=== PATIENT | female | born 1990 | race Caucasian/White ===

== ENCOUNTER → 2021-09-21 | Outpatient (CLI) | payer BC, OTHER ==
[2021-09-21 09:11] LABS: ALBUMIN 4.1 GM/DL (3.2-4.5); BILIRUBIN,TOTAL 0.4 MG/DL (0.1-1.0); CALCIUM 9.3 MG/DL (8.5-10.1); CREATININE SERUM 0.83 MG/DL (0.60-1.30); POTASSIUM 4.2 MMOL/L (3.6-5.0)
== END ==
LOC: LAB 08:21
PROVIDERS: ATTEND Midwife
DX: N92.6 Irregular menstruation, unspecified (principal)
CPT/HCPCS: 36415; 80053; 84703

== ENCOUNTER → 2021-11-30 | Outpatient (CLI) | payer BC | LOC: LAB 10:05 | PROVIDERS: ATTEND Internal Medicine Endocrinology, Diabetes & Metabolism | DX: O92.6 Galactorrhea (principal); E22.1 Hyperprolactinemia | CPT/HCPCS: 36415; 84146 ==

== ENCOUNTER → 2022-01-30 | Outpatient (CLI) | payer BC | LOC: LAB 13:20 | PROVIDERS: ATTEND Internal Medicine Endocrinology, Diabetes & Metabolism | DX: E22.1 Hyperprolactinemia (principal) | CPT/HCPCS: 36415; 84146 ==

== ENCOUNTER 2022-05-13 08:52 | Emergency (ER) | payer BC ==
[~2022-05-13] VITALS: Ht 172 cm; Wt 60.0 kg
[2022-05-13 09:24] LABS: BILIRUBIN,URINE NEGATIVE (NEGATIVE); CLARITY,URINE CLEAR; COLOR,URINE YELLOW; GLUCOSE, URINE (UA) NEGATIVE (NEGATIVE); KETONES,URINE NEGATIVE (NEGATIVE); LEUKOCYTE ESTERASE ,URINE NEGATIVE (NEGATIVE); NITRITE,URINE NEGATIVE (NEGATIVE); PROTEIN,URINE NEGATIVE (NEGATIVE)
[2022-05-13 09:31] LABS: BACTERIA,URINE NEGATIVE /HPF; RBC,URINE 50-100 /HPF
[2022-05-13 09:32] LABS: SQUAMOUS EPITHELIAL CELL,UR 0-2 /HPF
--- NOTE | 2022-05-13 09:32 | ED GU-Female ---
General Chief Complaint: OB < 20 WEEKS Stated Complaint: 6 WKS PREG - BLEEDING Nursing Triage Note: PT STATES 6 WKS BLEEDING STARTED THIS MORNING, G-2 P-1, NO ISSUES WITH FIRST . 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 STAATES HYPER PROLACTENEMIA AND TOOK MEDS FOR THAT BUT STOPPED WHEN SHE GOT . DUE DATE 01/08/23, LMP 04/03/22 Source: patient Exam Limitations: no limitations History of Present Illness Date Seen by Provider: May 13, 2022 Time Seen by Provider: 09:20 Initial Comments Patient is a 32-year-old female who presents to the emergency department today with a chief complaint of vaginal spotting that has turned into some vaginal bleeding similar to a light menstrual period. She is a last delivery was in 2018. No complications. She is a runner and went on a 5 mile run yesterday. No other complaints of trauma. No fevers chills, burning with urination. No other complaints of illness or injury. Mild cramping. EGA 5 weeks 5/7d by chio xiao. Estimated due date 01/08/23 All other review of systems reviewed and negative except as stated Timing/Duration: this morning Severity/Quality: mild, cramping (mild) Location: suprapubic Radiation: none Activities at Onset: none Prior Genitourinary Problems: none Associated Symptoms: denies symptoms Allergies and Home Medications Patient Home Medication List Home Medication List Reviewed: Yes Review of Systems Review of Systems Constitutional: see HPI Respiratory: no symptoms reported Cardiovascular: no symptoms reported Gastrointestinal: no symptoms reported Genitourinary: other (vaginal bleeding) : Yes Expected Date of Delivery: Jan 08, 2023 Endocrine: Other (h/o prolactinoma) All Other Systemes Reviewed Negative Unless Noted: Yes Past Mmqtzzw-Hwoazb-Avsgzz Hx Patient Social History Tobacco Use?: No Substance use?: No Alcohol Use?: No Immunizations Up To Date Second COVID19 Vaccination Ryan: YES 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 oz. kg; 20.00 BMI Method: General Appearance: WD/WN, no apparent distress, thin HEENT: PERRL/EOMI Neck: normal inspection Cardiovascular: regular rate, rhythm Respiratory: lungs clear, normal breath sounds, no respiratory distress, no accessory muscle use Gastrointestinal: non tender, soft Extremities: normal range of motion, normal inspection Neurologic/Psychiatric: alert, normal mood/affect, oriented x 3 Skin: normal color, warm/dry Progress/Results/Core Measures Suspected Sepsis SIRS Temperature: Pulse: 60 Respiratory Rate: 18 Laboratory Tests 05/13/22 09:40: White Blood Count 5.4 Blood Pressure 106 /71 Mean: 83 Laboratory Tests 05/13/22 09:40: Platelet Count 215 Results/Orders Lab Results Laboratory Tests Test 05/13/22 09:10 05/13/22 09:40 Range/Units Urine Color YELLOW Urine Clarity CLEAR Urine pH 6.0 5-9 Urine Specific [place] >=1.030 1.016-1.022 Urine Protein NEGATIVE NEGATIVE Urine Glucose (UA) NEGATIVE NEGATIVE Urine Ketones NEGATIVE NEGATIVE Urine Nitrite NEGATIVE NEGATIVE Urine Bilirubin NEGATIVE NEGATIVE Urine Urobilinogen 0.2 < = 1.0 MG/DL Urine Leukocyte Esterase NEGATIVE NEGATIVE Urine RBC (Auto) 3+ H NEGATIVE Urine RBC 50-100 H /HPF Urine WBC NONE /HPF Urine Squamous Epithelial Cells 0-2 /HPF Urine Crystals NONE /LPF Urine Bacteria NEGATIVE /HPF Urine Casts NONE /LPF Urine Mucus SMALL H /LPF Urine Culture Indicated NO White Blood Count 5.4 4.3-11.0 10^3/uL Red Blood Count 4.07 3.80-5.11 10^6/uL Hemoglobin 13.1 11.5-16.0 g/dL Hematocrit 39 35-52 % Mean Corpuscular Volume 96 80-99 fL Mean Corpuscular Hemoglobin 32 25-34 pg Mean Corpuscular Hemoglobin Concent 34 32-36 g/dL Red Cell Distribution Width 13.0 10.0-14.5 % Platelet Count 215 130-400 10^3/uL Mean Platelet Volume 10.0 9.0-12.2 fL Immature Granulocyte % (Auto) 0 % Neutrophils (%) (Auto) 59 42-75 % Lymphocytes (%) (Auto) 30 12-44 % Monocytes (%) (Auto) 9 0-12 % Eosinophils (%) (Auto) 1 0-10 % Basophils (%) (Auto) 0 0-10 % Neutrophils # (Auto) 3.2 1.8-7.8 10^3/uL Lymphocytes # (Auto) 1.7 1.0-4.0 10^3/uL Monocytes # (Auto) 0.5 0.0-1.0 10^3/uL Eosinophils # (Auto) 0.0 0.0-0.3 10^3/uL Basophils # (Auto) 0.0 0.0-0.1 10^3/uL Immature Granulocyte # (Auto) 0.0 0.0-0.1 10^3/uL Human Chorionic Gonadotropin, Quant 180 H <5 MIU/ML My Orders Orders - DELPHINE VASQUEZ MD Ua Culture If Indicated (05/13/22 09:09) Urine Bedside (05/13/22 09:09) Cbc With Automated Diff (05/13/22:26) Abo Rh Type (05/13/22:) Hcg,Quantitative (05/13/22 09:26) Vital Signs/I&O 05/13/22 09:01 Temp 36.4 Pulse 60 Resp 18 B/P (MAP) 106/71 (83) Pulse Ox 98 O2 Delivery Room Air Capillary Refill : Less Than 3 Seconds Blood Pressure Mean: 83 Progress Note : Time: 10:22 Progress Note Patient is comfortable. No complaints. Quant is 180. Patient advised to f ollow up with her OB provider in 48hours for repeat quant. Return precautions provided. Departure Impression Primary Impression: Threatened miscarriage in early Disposition: HOME, SELF-CARE Condition: Stable Departure-Patient Inst. Decision time for Depature: 10:23 Referrals: NO,LOCAL PHYSICIAN (PCP/Family) Primary Care Physician Add. Discharge Instructions: You will need a repeat quantitative HCG level in 2 days (Saturday). Your level i s 180 today, this number should double every 48hr in a healthy . You have no evidence of urinary tract infection today. Your Hgb is 13.1 If you have worsening heavy bleeding and pelvic pain - especially with a syncopal event, please return to the Emergency Department for re-evaluation. DELPHINE VASQUEZ MD May 13, 2022 09:32
[2022-05-13 09:58] LABS: BASOPHILS % (AUTO) 0 % (0-10); EOSINOPHILS % (AUTO) 1 % (0-10); HEMATOCRIT 39 % (35-52); HEMOGLOBIN 13.1 g/dL (11.5-16.0); LYMPHOCYTES # (AUTO) 1.7 10^3/uL (1.0-4.0); LYMPHOCYTES % (AUTO) 30 % (12-44); MEAN CORPUSCULAR HEMOGLOBIN 32 pg (25-34); MEAN CORPUSCULAR HGB CONC 34 g/dL (32-36); MEAN CORPUSCULAR VOLUME 96 fL (80-99); MONOCYTES # (AUTO) 0.5 10^3/uL (0.0-1.0); MONOCYTES % (AUTO) 9 % (0-12); NEUTROPHILS # (AUTO) 3.2 10^3/uL (1.8-7.8); NEUTROPHILS % (AUTO) 59 % (42-75); PLATELET COUNT 215 10^3/uL (130-400); WHITE BLOOD COUNT 5.4 10^3/uL (4.3-11.0)
[2022-05-13 10:42] VITALS: BP 106/71
== END 2022-05-13 10:42 | disposition home or self-care (01) ==
LOC: EDUNIT# 08:52 → ER 08:53
DX: O20.0 Threatened abortion (principal); Z3A.01 Less than 8 weeks gestation of pregnancy
CPT/HCPCS: 36415; 81000; 84702; 84703; 85025; 86900; 86901; 99282

== ENCOUNTER 2022-11-21 19:15 | Emergency (ER) | payer BC ==
[~2022-11-21] VITALS: Ht 172.7 cm; Wt 66.7 kg
[2022-11-21] MEDS ORDERED: PREN1TAB73 (19:41)
--- NOTE | 2022-11-21 19:57 | ED Abdominal Pain ---
General Chief Complaint: OB < 20 WEEKS Stated Complaint: 19WKS | LOWER CRAMPING Nursing Triage Note: c/o lower abdominal cramping x2hrs similiar to previous miscarriage. reports lmp 05/12. Source of Information: Patient Exam Limitations: No Limitations History of Present Illness Date Seen by Provider: November 21, 2022 Time Seen by Provider: 19:56 Initial Comments Patient is a 32-year-old female who is 19 weeks who presents ED with lower abdominal cramping. This started 2 hours ago. She states cramping is constant. Denies of any urinary symptoms, vaginal bleeding. She is currently following up with Dr. Ruff at [facility]. She had a miscarriage similar type presentation April 2022. Last menstrual cycle was before that. Denies of any fever, chills, diarrhea, vomiting, chest pain, shortness of breath. Allergies and Home Medications Allergies Coded Allergies: No Known Drug Allergies (Unverified , 11/21/22) Patient Home Medication List Home Medication List Reviewed: Yes Pnv95/Ferrous Fumarate/FA ( Tablet) 28 Mg Iron-800 Mcg Tablet, (Reported) Entered as Reported by: FELICIANO OH on 11/21/221940 Last Action: New Order Review of Systems Review of Systems Constitutional: No chills, No diaphoresis, No malaise, No weakness EENTM: No Double Vision, No Eye Pain Respiratory: Denies Cough Cardiovascular: Denies Chest Pain Gastrointestinal: Abdominal Pain; Denies Nausea, Denies Poor Appetite, Denies Vomiting Genitourinary: Denies Burning Musculoskeletal: No back pain Skin: No change in color, No change in hair/nails All Other Systems Reviewed Negative Unless Noted: Yes Past Sutqdcn-Qesoxt-Phozet Hx Patient Social History Tobacco Use?: No Substance use?: No Alcohol Use?: No Pt feels they are or have been: No Immunizations Up To Date First/Initial COVID19 Vaccinat: x2 Second COVID19 Vaccination Ryan: YES Past Medical History Surgery/Hospitalization HX: endometrosis, miscarriage Last Menstrual Period: May 05, 2022 Physical Exam Vital Signs Vital Signs - First Documented 11/21/22 19:36 Temp 36.0 Pulse 74 Resp 16 B/P (MAP) 122/71 (88) Pulse Ox 99 O2 Delivery Room Air Capillary Refill : Less Than 3 Seconds Height/Weight/BMI Height: '" Weight: lbs. oz. 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, no motor/sensory deficits, alert, normal mood/affect, oriented x 3 Skin: normal color, warm/dry Progress/Results/Core Measures Results/Orders Lab Results Laboratory Tests Test 11/21/22 20:05 11/21/22 20:34 Range/Units White Blood Count 7.6 4.3-11.0 10^3/uL Red Blood Count 3.53 L 3.80-5.11 10^6/uL Hemoglobin 11.7 11.5-16.0 g/dL Hematocrit 33 L 35-52 % Mean Corpuscular Volume 95 80-99 fL Mean Corpuscular Hemoglobin 33 25-34 pg Mean Corpuscular Hemoglobin Concent 35 32-36 g/dL Red Cell Distribution Width 13.7 10.0-14.5 % Platelet Count 221 130-400 10^3/uL Mean Platelet Volume 9.8 9.0-12.2 fL Immature Granulocyte % (Auto) 0 % Neutrophils (%) (Auto) 66 42-75 % Lymphocytes (%) (Auto) 25 12-44 % Monocytes (%) (Auto) 7 0-12 % Eosinophils (%) (Auto) 1 0-10 % Basophils (%) (Auto) 1 0-10 % Neutrophils # (Auto) 5.0 1.8-7.8 10^3/uL Lymphocytes # (Auto) 1.9 1.0-4.0 10^3/uL Monocytes # (Auto) 0.5 0.0-1.0 10^3/uL Eosinophils # (Auto) 0.1 0.0-0.3 10^3/uL Basophils # (Auto) 0.0 0.0-0.1 10^3/uL Immature Granulocyte # (Auto) 0.0 0.0-0.1 10^3/uL Urine Color YELLOW Urine Clarity CLEAR Urine pH 6.0 5-9 Urine Specific [place] 1.020 1.016-1.022 Urine Protein NEGATIVE NEGATIVE Urine Glucose (UA) NEGATIVE NEGATIVE Urine Ketones TRACE H NEGATIVE Urine Nitrite NEGATIVE NEGATIVE Urine Bilirubin NEGATIVE NEGATIVE Urine Urobilinogen 0.2 < = 1.0 MG/DL Urine Leukocyte Esterase NEGATIVE NEGATIVE Urine RBC (Auto) NEGATIVE NEGATIVE Urine RBC NONE /HPF Urine WBC NONE /HPF Urine Squamous Epithelial Cells 5-10 /HPF Urine Crystals NONE /LPF Urine Bacteria TRACE /HPF Urine Casts NONE /LPF Urine Mucus SMALL H /LPF Urine Culture Indicated NO Sodium Level 135 135-145 MMOL/L Potassium Level 3.5 L 3.6-5.0 MMOL/L Chloride Level 104 98-107 MMOL/L Carbon Dioxide Level 20 L 21-32 MMOL/L Anion Gap 11 5-14 MMOL/L Blood Urea Nitrogen 14 7-18 MG/DL Creatinine 0.68 0.60-1.30 MG/DL Estimat Glomerular Filtration Rate 120 BUN/Creatinine Ratio 21 Glucose Level 97 70-105 MG/DL Calcium Level 8.8 8.5-10.1 MG/DL Corrected Calcium 9.4 8.5-10.1 MG/DL Total Bilirubin 0.2 0.1-1.0 MG/DL Aspartate Amino Transf (AST/SGOT) 19 5-34 U/L Alanine Aminotransferase (ALT/SGPT) 16 0-55 U/L Alkaline Phosphatase 50 40-136 U/L Total Protein 6.6 6.4-8.2 GM/DL Albumin 3.2 3.2-4.5 GM/DL Human Chorionic Gonadotropin, Quant [id number] H <5 MIU/ML My Orders Orders - FELIX LAO Ua Culture If Indicated (11/21/22 19:55) Neisseria Gonorrhea Swab (11/21/22 19:55) Chlamydia Trachomatis Swab (11/21/22 19:55) Wet Prep (11/21/22 19:55) Cbc With Automated Diff (11/21/22 19:58) Comprehensive Metabolic Panel (11/21/22 19:58) Hcg,Quantitative (11/21/22 19:58) Vital Signs/I&O 11/21/22 11/21/22 19:36 20:42 Temp 36.0 Pulse 74 70 Resp 16 16 B/P (MAP) 122/71 (88) 118/72 Pulse Ox 99 99 O2 Delivery Room Air Room Air Blood Pressure Mean: 88 Departure Communication (PCP) P reviewed previous ER visits, H&P, lab testing. michelle is currently 19 weeks . 2 hours of lower abdominal pain and pressure. No vaginal bleeding. Patient had a miscarriage last April. Similar type presentation except no vaginal bleeding at this time. She refused anything for pain. She does have some suprapubic discomfort. Due to current complaint CBC, beta quant, urinalysi s, chemistry panel. CBC showed normal white blood count and hemoglobin. Beta quant 34,000. Urinalysis negative for infection or hematuria. Bedside ultrasound noted cardiac activity. 148 bpm. Pelvic exam was performed. Cervix appears closed. No bleeding. Mild white thin discharge. Cultures pending. Due to her history of miscarriage I believe patient needs strict fol low-up with her CLIENT SERVER DEVELOPER at [place] Dr. Ruff. Discussed Tylenol at this time. Potentially round ligament pain versus normal pain. Possible early miscarriage but need further evaluation with exam and ultrasound. Patient is Rh+. Patient states pain appears to be improving. Strongly recommend following up with your CLIENT SERVER DEVELOPER tomorrow for further evaluation. If bleeding continues or gets worse may return back to ED for further evaluation Impression Primary Impression: Abdominal pain during Disposition: 01 HOME, SELF-CARE Condition: Stable Departure-Patient Inst. Decision time for Depature: 20:38 Referrals: CHRISSIE FLYNN,LOCAL PHYSICIAN (PCP) Primary Care Physician Patient Instructions: Threatened Miscarriage Add. Discharge Instructions: Recommend following up with your CLIENT SERVER DEVELOPER tomorrow to discuss the lower abdominal cramping. If continued pain, vaginal bleeding recommend returning back to ED or contacting your CLIENT SERVER DEVELOPER for further evaluation All discharge instructions reviewed with patient and/or family. Voiced understanding. FELIX LAO November 21, 2022 19:57
[2022-11-21 20:12] LABS: BASOPHILS % (AUTO) 1 % (0-10); EOSINOPHILS # (AUTO) 0.1 10^3/uL (0.0-0.3); EOSINOPHILS % (AUTO) 1 % (0-10); HEMATOCRIT 33 % (35-52); HEMOGLOBIN 11.7 g/dL (11.5-16.0); LYMPHOCYTES # (AUTO) 1.9 10^3/uL (1.0-4.0); LYMPHOCYTES % (AUTO) 25 % (12-44); MEAN CORPUSCULAR HEMOGLOBIN 33 pg (25-34); MEAN CORPUSCULAR HGB CONC 35 g/dL (32-36); MEAN CORPUSCULAR VOLUME 95 fL (80-99); MEAN PLATELET VOLUME 9.8 fL (9.0-12.2); MONOCYTES # (AUTO) 0.5 10^3/uL (0.0-1.0); MONOCYTES % (AUTO) 7 % (0-12); NEUTROPHILS % (AUTO) 66 % (42-75); PLATELET COUNT 221 10^3/uL (130-400); WHITE BLOOD COUNT 7.6 10^3/uL (4.3-11.0)
[2022-11-21 20:14] LABS: BILIRUBIN,URINE NEGATIVE (NEGATIVE); CLARITY,URINE CLEAR; COLOR,URINE YELLOW; GLUCOSE, URINE (UA) NEGATIVE (NEGATIVE); KETONES,URINE TRACE (NEGATIVE); LEUKOCYTE ESTERASE ,URINE NEGATIVE (NEGATIVE); NITRITE,URINE NEGATIVE (NEGATIVE); PROTEIN,URINE NEGATIVE (NEGATIVE)
[2022-11-21 20:18] LABS: ALBUMIN 3.2 GM/DL (3.2-4.5)
[2022-11-21 20:19] LABS: POTASSIUM 3.5 MMOL/L (3.6-5.0)
[2022-11-21 20:20] LABS: CALCIUM 8.8 MG/DL (8.5-10.1)
[2022-11-21 20:21] LABS: BACTERIA,URINE TRACE /HPF; TOTAL PROTEIN 6.6 GM/DL (6.4-8.2)
[2022-11-21 20:23] LABS: BILIRUBIN,TOTAL 0.2 MG/DL (0.1-1.0)
[2022-11-21 20:25] LABS: CREATININE SERUM 0.68 MG/DL (0.60-1.30)
[2022-11-21 20:42] VITALS: BP 118/72
== END 2022-11-21 20:42 | disposition home or self-care (01) ==
LOC: EDUNIT# 19:15 → ER 19:19
DX: O26.892 Other specified pregnancy related conditions, second trimester (principal); R10.30 Lower abdominal pain, unspecified; Z3A.19 19 weeks gestation of pregnancy
CPT/HCPCS: 36415; 80053; 81000; 84702; 85025; 87491; 87591; 99284